=== PATIENT | male | born 1950 | race Caucasian/White ===

== ENCOUNTER 2017-07-31 19:01 | Observation (INO) | payer MEDICARE, BC ==
[~2017-07-31] VITALS: Ht 177.8 cm; Wt 123.4 kg
[2017-07-31] MEDS ORDERED: ACETAMINOPHEN 325 MG TAB PO ONE (19:45)
[2017-07-31 20:07] LABS: BASOPHILS % 0.2 % (0.0-1.0); EOSINOPHILS % 0.2 % (0.0-6.0); HEMATOCRIT 48.9 % (38.2-49.6); HEMOGLOBIN 15.8 g/dL (14.0-18.0); LYMPHOCYTES # (AUTO) 0.5 (1.0-3.2); LYMPHOCYTES % 3.7 % (18.0-39.1); MEAN CORPUSCULAR HGB CONC 32.3 g/dL (31-35); MONOCYTES % 7.8 % (4.4-11.3); NEUTROPHILS # (AUTO) 11.1 (2.1-6.9); NEUTROPHILS % 87.4 % (38.7-80.0); PLATELET COUNT 105 x10e3/uL (140-360); RED BLOOD COUNT 4.94 x10e6/uL (4.3-5.7); RED CELL DISTRIBUTION WIDTH 13.2 % (11.7-14.4)
[2017-07-31 20:16] LABS: INR 0.97; PROTHROMBIN TIME 13.4 seconds (11.9-14.5)
[2017-07-31 20:17] LABS: PARTIAL THROMBOPLASTIN TIME 36.3 seconds (23.8-35.5)
--- NOTE | 2017-07-31 20:18 | Diagnostic Imaging Report ---
EXAM: CHEST 2 VIEWS, PA and lateral DATE: 07/31/2017 7:31 PM Time stamp on exam: 1940 hours INDICATION: Shortness of breath, history of COPD COMPARISON: AP view of the chest June 19, 2011 FINDINGS: LINES/TUBES: None LUNGS: No consolidations or edema. Stable vascular congestion and bronchial thickening. PLEURA: No effusions or pneumothorax. HEART AND MEDIASTINUM: Normal size and contour. BONES AND SOFT TISSUES: No acute findings. IMPRESSION: No consolidative pneumonia Signed by: Dr. Carolyn Rodriguez M.D. on 07/31/2017 8:14 PM
[2017-07-31 20:25] LABS: ALBUMIN 4.1 g/dL (3.5-5.0); ALBUMIN/GLOBULIN RATIO 1.1 (0.8-2.0); ANION GAP 12.8 mmol/L (8-16); CALCIUM 9.5 mg/dL (8.4-10.2); CREATININE, SERUM 1.22 mg/dL (0.72-1.25); POTASSIUM 4.8 mmol/L (3.5-5.1)
[2017-07-31] MEDS ORDERED: CEFTRIAXONE SOD 1 GM VIAL IV STA (20:26)
[2017-07-31] MEDS ORDERED: METHYLPREDNISOLONE SOD SUCC 125 MG/2ML VIAL IV STA (20:43)
[2017-07-31] MEDS ORDERED: SODIUM CHLORIDE 0.9% 500ML 500 ML IV ONE (20:45)
[2017-07-31] MEDS ORDERED: LEVALBUTEROL HCL SOLN NEBU 0.63 MG/3 ML NEB INH ONE (20:45)
[2017-07-31] MEDS ORDERED: IPRATROPIUM BROMIDE 0.02% 2.5 ML NEB NEB ONE (20:45)
[2017-07-31 20:52] LABS: CLARITY,URINE CLOUDY (CLEAR); COLOR,URINE AMBER (YELLOW); KETONES,URINE NEGATIVE (NEGATIVE); LEUKOCYTE ESTERASE ,URINE 2+ (NEGATIVE); URINE UROBILINOGEN 8 mg/dL (0.2 - 1)
[2017-07-31 20:57] LABS: BILIRUBIN,URINE 3+ (NEGATIVE); NITRITE,URINE POSITIVE (NEGATIVE); PROTEIN,URINE DIPSTICK 2+ (NEGATIVE)
[2017-07-31 21:23] LABS: WBC,URINE (MAN) >50 /HPF (0-5)
[2017-07-31 21:24] LABS: BACTERIA,URINE MODERATE /HPF; EPITHELIAL CELLS,URINE MODERATE /LPF
[2017-07-31] MEDS ORDERED: VANCOMYCIN 1GM/NS 250 ML 250 ML IV ONE (21:30)
[2017-07-31] MEDS ORDERED: SODIUM CHLORIDE 0.9% 1000ML 1,000 ML IV ONE (21:38)
[2017-07-31] MEDS ORDERED: ACETAMINOPHEN 325 MG TAB PO PRN (21:45)
[2017-07-31] MEDS ORDERED: ONDANSETRON HCL INJ 2 MG/ML VIAL IV PRN (21:45)
[2017-07-31 22:30] VITALS: BP 155/70
[2017-07-31 23:33] VITALS: BP 155/70
[2017-08-01 04:00] VITALS: BP 121/58
[2017-08-01] MEDS ORDERED: CEFTRIAXONE SOD 1 GM VIAL IV SCH (08:00)
[2017-08-01] MEDS ORDERED: ASPIRIN81 MG (08:28)
[2017-08-01] MEDS ORDERED: FLUOCINONIDE-E15 GM TOP (08:28)
[2017-08-01] MEDS ORDERED: SPIRIVA18 MCG INH (08:28)
[2017-08-01] MEDS ORDERED: SIMVASTATIN20 MG PO (08:28)
[2017-08-01] MEDS ORDERED: TRADJENTA5 MG (08:28)
[2017-08-01] MEDS ORDERED: DULERA 200 MCG/13 GM INH (08:28)
[2017-08-01] MEDS ORDERED: ZADITOR5 ML OP (08:28)
[2017-08-01] MEDS ORDERED: DIOVAN HCT 1601 EACH (08:28)
[2017-08-01] MEDS ORDERED: VITAMIN D5000 UNIT (08:28)
[2017-08-01] MEDS ORDERED: TRIAMCINOLONE A15 G1 TP (08:28)
[2017-08-01] MEDS ORDERED: ZYRTEC10 M3 (08:28)
[2017-08-01] MEDS ORDERED: METOPROLOL SUCC50 MG PO (08:28)
[2017-08-01] MEDS ORDERED: ENBREL25 MG/0.5 SC (08:28)
[2017-08-01] MEDS ORDERED: TAMSULOSIN HCL0.4 MG (08:28)
[2017-08-01 08:30] LABS: BASOPHILS % 0.3 % (0.0-1.0); HEMATOCRIT 47.6 % (38.2-49.6); HEMOGLOBIN 15.3 g/dL (14.0-18.0); LYMPHOCYTES # (AUTO) 0.4 (1.0-3.2); LYMPHOCYTES % 2.4 % (18.0-39.1); MEAN CORPUSCULAR HEMOGLOBIN 31.9 pg (28-32); MEAN CORPUSCULAR HGB CONC 32.1 g/dL (31-35); MEAN CORPUSCULAR VOLUME 99.2 fL (81-99); MONOCYTES # (AUTO) 0.3 (0.2-0.8); MONOCYTES % 1.7 % (4.4-11.3); NEUTROPHILS # (AUTO) 13.6 (2.1-6.9); NEUTROPHILS % 94.2 % (38.7-80.0); PLATELET COUNT 98 x10e3/uL (140-360); RED CELL DISTRIBUTION WIDTH 13.2 % (11.7-14.4)
[2017-08-01] MEDS ORDERED: DEXTROSE 50% SYRINGE 50 ML IV PRN (08:45)
[2017-08-01 08:58] LABS: ALANINE AMINOTRANSFERASE 12 IU/L (0-55); ALBUMIN 3.5 g/dL (3.5-5.0); ALBUMIN/GLOBULIN RATIO 0.9 (0.8-2.0); ALKALINE PHOSPHATASE 38 IU/L (40-150); ANION GAP 13.7 mmol/L (8-16); BLOOD UREA NITROGEN 22 mg/dL (7-26); BUN/CREATININE RATIO 20 (6-25); CALCIUM 8.8 mg/dL (8.4-10.2); CARBON DIOXIDE 29 mmol/L (22-29); CHLORIDE 93 mmol/L (98-107); CREATININE, SERUM 1.11 mg/dL (0.72-1.25); EST GLOMERULAR FILTRATION RATE > 60 ML/MIN (60-); GLUCOSE 213 mg/dL (74-118); POTASSIUM 4.7 mmol/L (3.5-5.1); SODIUM 131 mmol/L (136-145)
[2017-08-01] MEDS: TRADJENTA 5 MG PO SCH (09:00)
[2017-08-01] MEDS: [UNRECOGNIZED DRUG - OTHER] OP SCH (09:00)
[2017-08-01] MEDS ORDERED: ETANERCEPT SC SCH (09:15)
[2017-08-01] MEDS: INSULIN LISPRO 100 UNIT/1 ML 3ML VIAL SQ SCH ×4 (09:15→22:00)
[2017-08-01 09:25] LABS: CREATINE KINASE MB 2.8 ng/mL (0.00-5.00); TROPONIN I 0.014 ng/mL (0-0.300)
[2017-08-01] MEDS: ASPIRIN 81 MG CHEW TAB PO SCH (09:40)
[2017-08-01] MEDS: LORATADINE 10 MG TAB PO SCH (09:40)
[2017-08-01] MEDS: VALSARTAN 160 MG TAB PO SCH (09:40)
[2017-08-01] MEDS: HYDROCHLOROTHIAZIDE 25 MG TAB PO SCH (09:40)
[2017-08-01] MEDS: CHOLECALCIFEROL 1,000 UNIT TAB PO SCH (09:41)
[2017-08-01 11:22] LABS: BAND NEUTROPHILS % (MANUAL) 16 %; LYMPHOCYTES % (MANUAL) 3 % (19-48); MONOCYTES % (MANUAL) 2 % (3.4-9.0); NEUTROPHILS % (MANUAL) 79 % (40-74); PLATELET MORPHOLOGY COMMENT NORMAL; RBC MORPHOLOGY COMMENT NORMAL
[2017-08-01 11:23] LABS: PLATELET ESTIMATE SLIGHTLY DECREASED
[2017-08-01] MEDS: FLUOCINONIDE 0.05% 1 EA/15 GM TUBE TOP SCH (12:00)
[2017-08-01] MEDS ORDERED: ALBUTEROL/IPRATROPIUM 3 ML NEB NEB PRN (12:30)
[2017-08-01] MEDS: CEFEPIME HCL 1 GM VIAL IV SCH ×2 (14:28→21:05)
[2017-08-01] MEDS: TIOTROPIUM 18 MCG INH POWDER INH SCH (15:35)
[2017-08-01 16:55] LABS: CREATINE KINASE MB 3.1 ng/mL (0.00-5.00); TROPONIN I 0.018 ng/mL (0-0.300)
[2017-08-01 17:05] VITALS: BP 128/67
[2017-08-01 20:00] VITALS: BP 130/65
[2017-08-01] MEDS ORDERED: TAMSULOSIN HCL 0.4 MG CAP PO SCH (21:00)
[2017-08-01] MEDS ORDERED: METOPROLOL SUCCINATE 50 MG TAB XL PO SCH (21:00)
[2017-08-01] MEDS ORDERED: SIMVASTATIN 20 MG TAB PO SCH (21:00)
[2017-08-01] MEDS ORDERED: TRESIBA 200 UNIT/ML SC SCH (21:00)
[2017-08-02] VITALS: BP 134/79
[2017-08-02 04:00] VITALS: BP 138/77
[2017-08-02] MEDS: CEFEPIME HCL 1 GM VIAL IV SCH (06:18)
[2017-08-02 07:11] LABS: BASOPHILS % 0.2 % (0.0-1.0); EOSINOPHILS % 0.1 % (0.0-6.0); HEMATOCRIT 45.5 % (38.2-49.6); HEMOGLOBIN 14.4 g/dL (14.0-18.0); LYMPHOCYTES # (AUTO) 0.7 (1.0-3.2); MEAN CORPUSCULAR HEMOGLOBIN 31.6 pg (28-32); MEAN CORPUSCULAR HGB CONC 31.6 g/dL (31-35); MONOCYTES # (AUTO) 1.3 (0.2-0.8); MONOCYTES % 7.7 % (4.4-11.3); NEUTROPHILS # (AUTO) 14.5 (2.1-6.9); NEUTROPHILS % 86.9 % (38.7-80.0); PLATELET COUNT 110 x10e3/uL (140-360); RED BLOOD COUNT 4.55 x10e6/uL (4.3-5.7); RED CELL DISTRIBUTION WIDTH 13.3 % (11.7-14.4)
[2017-08-02] MEDS: TIOTROPIUM 18 MCG INH POWDER INH SCH (07:30)
[2017-08-02 07:42] LABS: ANION GAP 10.6 mmol/L (8-16); BLOOD UREA NITROGEN 31 mg/dL (7-26); BUN/CREATININE RATIO 27 (6-25); CALCIUM 8.8 mg/dL (8.4-10.2); CARBON DIOXIDE 34 mmol/L (22-29); CHLORIDE 90 mmol/L (98-107); CREATININE, SERUM 1.15 mg/dL (0.72-1.25); EST GLOMERULAR FILTRATION RATE > 60 ML/MIN (60-); GLUCOSE 156 mg/dL (74-118); POTASSIUM 4.6 mmol/L (3.5-5.1); SODIUM 130 mmol/L (136-145)
[2017-08-02 08:21] VITALS: BP 152/75
[2017-08-02] MEDS: ASPIRIN 81 MG CHEW TAB PO SCH (08:42)
[2017-08-02] MEDS: LORATADINE 10 MG TAB PO SCH (08:42)
[2017-08-02] MEDS: INSULIN LISPRO 100 UNIT/1 ML 3ML VIAL SQ SCH ×2 (08:42→11:30)
[2017-08-02] MEDS: CHOLECALCIFEROL 1,000 UNIT TAB PO SCH (08:42)
[2017-08-02] MEDS: TRADJENTA 5 MG PO SCH (08:43)
[2017-08-02] MEDS: HYDROCHLOROTHIAZIDE 25 MG TAB PO SCH (08:43)
[2017-08-02] MEDS: [UNRECOGNIZED DRUG - OTHER] OP SCH (08:43)
[2017-08-02] MEDS: VALSARTAN 160 MG TAB PO SCH (08:43)
[2017-08-02] MEDS: FLUOCINONIDE 0.05% 1 EA/15 GM TUBE TOP SCH (08:44)
[2017-08-02] MEDS ORDERED: TRIAMCINOLONE ACET 0.1% CREAM 15 GM TUBE TOP SCH (09:00)
[2017-08-02] MEDS ORDERED: CEFTRIAXONE SOD 1 GM VIAL IV SCH (13:30)
[2017-08-02] MEDS ORDERED: CIPRO500 MG PO (13:53)
--- NOTE | 2017-08-03 08:26 | Discharge Summary ---
PRIMARY CARE DOCTOR: Dr. Cornelius Gu FINAL DIAGNOSIS: Sepsis present on admission due to Escherichia coli urinary tract infection. SECONDARY DIAGNOSIS 1. Chronic hyponatremia, stable and asymptomatic. 2. Diabetes. 3. Chronic respiratory failure due to chronic obstructive pulmonary disease, on home oxygen. 4. Chronic mild thrombocytopenia, stable. 5. Psoriatic arthritis, on Enbrel weekly injection. 6. Stage 2 chronic kidney disease due to diabetes. 7. Hypertension. CONSULTANTS: None. PROCEDURES/STUDIES PERFORMED: None. HISTORY OF PRESENT ILLNESS: Per [facility]. HOSPITAL COURSE: The patient clinically responded to IV antibiotics well. His strength came back nicely as well. He is pretty much back to baseline. This was confirmed by his at the bedside. I will send him home on ciprofloxacin for another week. I informed them to talk to his primary care doctor about potential urological workup. The patient's white blood cell count by the time of discharge was still elevated at 16. On admission, it was 13. The patient has been afebrile for 24 hours now. This is most likely due to inflammatory response from his psoriatic arthritis. Clinically, he is doing well. CONDITION ON DISCHARGE: Stable. DISCHARGE MEDICATIONS: Please see medication reconciliation form. It took 32 minutes total to discharge this patient. ALBERTO NJ M.D. Job#: [id number] RI cc:CORNELIUS UG MD
== END 2017-08-02 14:30 | disposition home or self-care (01) ==
LOC: ER 19:01 → ERHOLD 22:04 → IMCU 22:14 → MED/SURG2 08-01 17:29
PROVIDERS: ADMIT Internal Medicine; ATTEND Internal Medicine
DX: A41.9 Sepsis, unspecified organism (principal); N39.0 Urinary tract infection, site not specified; B96.20 Unspecified Escherichia coli [E. coli] as the cause of diseases classified elsewhere; R31.9 Hematuria, unspecified; E87.1 Hypo-osmolality and hyponatremia; J44.9 Chronic obstructive pulmonary disease, unspecified; J96.10 Chronic respiratory failure, unspecified whether with hypoxia or hypercapnia; D69.6 Thrombocytopenia, unspecified; Z99.81 Dependence on supplemental oxygen; L40.50 Arthropathic psoriasis, unspecified; E11.22 Type 2 diabetes mellitus with diabetic chronic kidney disease; I12.9 Hypertensive chronic kidney disease with stage 1 through stage 4 chronic kidney disease, or unspecified chronic kidney disease; N18.2 Chronic kidney disease, stage 2 (mild)
CPT/HCPCS: 36415 ×3; 71020; 80048; 80053 ×2; 81001; 82550; 82553; 82948 ×3; 83605; 84443; 84484; 85025 ×3; 85610; 85730; 87040; 87086; 87186; 87400; 93005; 94640; 94660 ×2; 99284; G0378 ×3; J0692 ×2; J0696 ×3; J2930; J3370; J7030; J7040

== ENCOUNTER → 2017-10-04 | Outpatient (CLI) | payer MEDICARE, BC ==
[~2017-10-04] MED LIST: ASPIRIN81 MG; CIPRO500 MG PO; DIOVAN HCT 1601 EACH; DULERA 200 MCG/13 GM INH; ENBREL25 MG/0.5 SC; FLUOCINONIDE-E15 GM TOP; METOPROLOL SUCC50 MG PO; SIMVASTATIN20 MG PO; SPIRIVA18 MCG INH; TAMSULOSIN HCL0.4 MG; TRADJENTA5 MG; TRIAMCINOLONE A15 G1 TP; VITAMIN D5000 UNIT; ZADITOR5 ML OP; ZYRTEC10 M3
--- NOTE | 2017-10-04 11:59 | Diagnostic Imaging Report ---
PROCEDURE: Frontal and lateral views of the chest. COMPARISON: Chest radiograph 07/31/2017 INDICATIONS: FOLLOW UP ON SPOT SEEN IN LUNG FINDINGS: Lines/tubes: None. Lungs: The lungs are well inflated. There is no evidence of pneumonia or pulmonary edema. Pleura: There is no pleural effusion or pneumothorax. Heart and mediastinum: The heart and the mediastinum are normal. Bones: No acute bony abnormality. IMPRESSION: No acute cardiopulmonary disease. Dictated by: Joshua Suarez M.D. on 10/04/2017 at 11:59 Electronically approved by: Joshua Suarez M.D. on 10/04/2017 at 11:59
== END ==
LOC: RAD 11:26
PROVIDERS: ATTEND Internal Medicine
DX: J44.9 Chronic obstructive pulmonary disease, unspecified (principal)
CPT/HCPCS: 71046

== ENCOUNTER → 2021-07-14 | Outpatient (CLI) | payer MEDICARE, BC | LOC: RAD 13:51 | PROVIDERS: ATTEND Internal Medicine Pulmonary Disease | DX: R06.02 Shortness of breath (principal) | CPT/HCPCS: 71046 ==

== ENCOUNTER 2021-08-17 10:50 | Emergency (ER) | payer MEDICARE, BC ==
[~2021-08-17] VITALS: Ht 177.8 cm; Wt 123.4 kg
[2021-08-17 11:15] LABS: BASOPHILS % 0.4 % (0.0-1.0); HEMATOCRIT 43.3 % (38.2-49.6); HEMOGLOBIN 13.2 g/dL (14.0-18.0); LYMPHOCYTES # (AUTO) 0.4 (1.0-3.2); LYMPHOCYTES % 15.6 % (18.0-39.1); MEAN CORPUSCULAR HEMOGLOBIN 29.3 pg (28-32); MEAN CORPUSCULAR HGB CONC 30.5 g/dL (31-35); MEAN CORPUSCULAR VOLUME 96.2 fL (81-99); MONOCYTES # (AUTO) 0.2 (0.2-0.8); MONOCYTES % 10.7 % (4.4-11.3); NEUTROPHILS # (AUTO) 1.6 (2.1-6.9); NEUTROPHILS % 72.4 % (38.7-80.0); PLATELET COUNT 78 x10e3/uL (140-360); RED CELL DISTRIBUTION WIDTH 15.2 % (11.7-14.4)
[2021-08-17 11:28] LABS: ALBUMIN 3.4 g/dL (3.5-5.0); ALBUMIN/GLOBULIN RATIO 0.9 (0.8-2.0); ANION GAP 13.9 mmol/L (8-16); CREATININE, SERUM 1.2 mg/dL (0.72-1.25); POTASSIUM 4.9 mmol/L (3.5-5.1)
[2021-08-17 11:28] LABS: COLOR,URINE YELLOW (YELLOW)
[2021-08-17 11:29] LABS: CLARITY,URINE CLEAR (CLEAR); KETONES,URINE NEGATIVE (NEGATIVE); LEUKOCYTE ESTERASE ,URINE NEGATIVE (NEGATIVE); NITRITE,URINE NEGATIVE (NEGATIVE); PROTEIN,URINE DIPSTICK >=300 (NEGATIVE); URINE UROBILINOGEN 0.2 mg/dL (0.2 - 1)
[2021-08-17] MEDS ORDERED: ACETAMINOPHEN 325 MG TAB ONE (11:38)
[2021-08-17 11:39] LABS: BACTERIA,URINE RARE /HPF; EPITHELIAL CELLS,URINE FEW /LPF; RBC,URINE 0-5 /HPF (0-5); WBC,URINE (MAN) 0-5 /HPF (0-5)
[2021-08-17] MEDS ORDERED: ACETAMINOPHEN 325 MG TAB PO NR (11:45)
[2021-08-17 12:12] VITALS: BP 108/57
== END 2021-08-17 13:00 | disposition home or self-care (01) ==
LOC: ER 10:57
DX: U07.1 COVID-19 (principal); R50.9 Fever, unspecified; R53.1 Weakness; I10 Essential (primary) hypertension; E11.9 Type 2 diabetes mellitus without complications; E78.5 Hyperlipidemia, unspecified; J44.9 Chronic obstructive pulmonary disease, unspecified; M54.9 Dorsalgia, unspecified; G89.29 Other chronic pain
CPT/HCPCS: 36415; 71045; 80053; 81001; 83880; 84484; 85025; 87086; 93005; 99284

== ENCOUNTER → 2023-08-30 | Outpatient (REF) | payer MEDICARE, BC ==
[~2023-08-30] MED LIST changes: +ACIDOPHILUS1 EAC1 PO; +AMIODARONE HCL200 MG PO; +AMLODIPINE-OLM1 EACH PO; +CEFTIN PO; +EFFIENT10 MG PO; +FINASTERIDE5 MG PO; +FLOMAX0.4 MG PO; +ROSUVASTATIN CA20 MG PO; +TAMSULOSIN PO; +TRESIBA FL200 UNIT/1 SQ; -ZYRTEC10 M3; +ZYRTEC10 M3 PO
== END ==
LOC: CT 11:27
PROVIDERS: ATTEND Nurse Practitioner Family
DX: R09.02 Hypoxemia (principal); J44.9 Chronic obstructive pulmonary disease, unspecified; L40.50 Arthropathic psoriasis, unspecified; Z87.891 Personal history of nicotine dependence
CPT/HCPCS: 71250

== ENCOUNTER → 2024-03-23 | Outpatient (REF) | payer MEDICARE, BC | LOC: RAD 14:30 | PROVIDERS: ATTEND Nurse Practitioner Family | DX: R09.02 Hypoxemia (principal); J44.9 Chronic obstructive pulmonary disease, unspecified; K21.9 Gastro-esophageal reflux disease without esophagitis; G47.33 Obstructive sleep apnea (adult) (pediatric); L40.50 Arthropathic psoriasis, unspecified; J30.2 Other seasonal allergic rhinitis; E66.9 Obesity, unspecified; Z87.891 Personal history of nicotine dependence | CPT/HCPCS: 71046 ==

== ENCOUNTER 2024-05-30 01:07 | Inpatient (IN) | payer MEDICARE, BC ==
[2024-05-30] VITALS (10 sets, daily range): BP systolic 116–129; BP diastolic 58–70; PULSE 81–86; RESP 18–25; TEMP 97.9–99.2; O2SAT 94–98
[~2024-05-30] VITALS: Ht 180.3 cm; Wt 120.5 kg
[2024-05-30] MEDS: SODIUM CHLORIDE 0.9% 1000ML 1,000 ML IV STA (01:28)
[2024-05-30] MEDS: ACETAMINOPHEN 325 MG TAB PO STA (01:29)
[2024-05-30 01:40] LABS: BASOPHILS % 0.1 % (0.0-1.0); EOSINOPHILS % 0.1 % (0.0-6.0); HEMATOCRIT 42.4 % (38.2-49.6); HEMOGLOBIN 13.4 g/dL (14.0-18.0); LYMPHOCYTES # (AUTO) 0.4 (1.0-3.2); LYMPHOCYTES % 5.2 % (18.0-39.1); MEAN CORPUSCULAR HEMOGLOBIN 32.1 pg (28-32); MEAN CORPUSCULAR HGB CONC 31.6 g/dL (31-35); MEAN CORPUSCULAR VOLUME 101.7 fL (81-99); MONOCYTES # (AUTO) 0.7 (0.2-0.8); MONOCYTES % 8.3 % (4.4-11.3); NEUTROPHILS # (AUTO) 7.1 (2.1-6.9); NEUTROPHILS % 86.1 % (38.7-80.0); RED BLOOD COUNT 4.17 x10e6/uL (4.3-5.7)
[2024-05-30 02:02] LABS: CLARITY,URINE CLOUDY (CLEAR); COLOR,URINE YELLOW (YELLOW); GLUCOSE, URINE NEGATIVE (NEGATIVE); KETONES,URINE TRACE (NEGATIVE); LEUKOCYTE ESTERASE ,URINE SMALL (NEGATIVE); NITRITE,URINE NEGATIVE (NEGATIVE); PH,URINE 5.5 (5 - 7); PROTEIN,URINE DIPSTICK 2+ (NEGATIVE)
[2024-05-30 02:03] LABS: BILIRUBIN,URINE NEGATIVE (NEGATIVE); URINE UROBILINOGEN 0.2 mg/dL (0.2 - 1)
[2024-05-30 02:03] LABS: ALBUMIN 3.8 g/dL (3.5-5.0); ALBUMIN/GLOBULIN RATIO 1.1 (0.8-2.0); ANION GAP 16.7 mmol/L (8-16); BILIRUBIN,TOTAL 0.8 mg/dL (0.2-1.2); CALCIUM 9.2 mg/dL (8.4-10.2); CREATININE, SERUM 1.72 mg/dL (0.72-1.25); POTASSIUM 4.7 mmol/L (3.5-5.1); TOTAL PROTEIN 7.3 g/dL (6.5-8.1)
[2024-05-30 02:10] LABS: BACTERIA,URINE MANY /HPF; EPITHELIAL CELLS,URINE FEW /LPF; RBC,URINE 0-5 /HPF (0-5); WBC,URINE (MAN) 21-50 /HPF (0-5)
[2024-05-30 02:25] LABS: PLATELET COUNT 88 x10e3/uL (140-360)
[2024-05-30 02:39] LABS: TROPONIN I 0.012 ng/mL (0-0.300)
[2024-05-30 02:44] LABS: B-TYPE NATRIURETIC PEPTIDE2 108.6 pg/mL (0-100)
[2024-05-30] MEDS ORDERED: ONDANSETRON HCL INJ 2MG/ML 2ML 2 MG/ML VIAL IV PRN (03:00)
[2024-05-30] MEDS ORDERED: Morphine 2mg Syringe 2 MG/ML SYR IV PRN (03:00)
[2024-05-30] MEDS: SODIUM CHLORIDE 0.9% 1000ML 1,000 ML IV SCH (03:26)
[2024-05-30] MEDS ORDERED: DEXTROSE 50% SYRINGE 50 ML IV PRN (08:15)
[2024-05-30] MEDS ORDERED: ACETAMINOPHEN 325 MG TAB PO PRN (08:15)
[2024-05-30] MEDS: FINASTERIDE 5 MG TAB PO SCH (09:00)
[2024-05-30] MEDS: LACTOBACILLUS ACIDOPHILUS CAPSULE PO SCH (09:00)
[2024-05-30] MEDS ORDERED: AMIODARONE HCL 200 MG TAB PO SCH (09:00)
[2024-05-30] MEDS ORDERED: PRASUGREL 10 MG TAB PO SCH (09:00)
[2024-05-30] MEDS: LORATADINE 10 MG TAB PO SCH (09:00)
[2024-05-30] MEDS: INSULIN LISPRO 100 UNIT/1 ML 3ML VIAL SQ SCH (11:30)
[2024-05-30 14:11] LABS: TROPONIN I 0.012 ng/mL (0-0.300)
[2024-05-30] MEDS: TAMSULOSIN HCL 0.4 MG CAP PO SCH (18:02)
[2024-05-30] MEDS: SODIUM CHLORIDE 0.9% 250ML 250 ML ONE (18:09)
[2024-05-30] MEDS: CRESTOR 10MG PO SCH (22:03)
[2024-05-30] MEDS: METOPROLOL SUCCINATE 50 MG TAB XL PO SCH (22:05)
[2024-05-31] VITALS (10 sets, daily range): BP systolic 99–115; BP diastolic 43–57; PULSE 71–95; RESP 18–21; TEMP 97.2–98.6; O2SAT 93–100
[2024-05-31 05:59] LABS: BASOPHILS % 0.2 % (0.0-1.0); EOSINOPHILS # (AUTO) 0.1 (0.0-0.4); EOSINOPHILS % 0.6 % (0.0-6.0); HEMATOCRIT 40.2 % (38.2-49.6); HEMOGLOBIN 12.6 g/dL (14.0-18.0); LYMPHOCYTES # (AUTO) 0.5 (1.0-3.2); LYMPHOCYTES % 6.3 % (18.0-39.1); MEAN CORPUSCULAR HEMOGLOBIN 32.4 pg (28-32); MEAN CORPUSCULAR HGB CONC 31.3 g/dL (31-35); MEAN CORPUSCULAR VOLUME 103.3 fL (81-99); MONOCYTES # (AUTO) 0.9 (0.2-0.8); MONOCYTES % 10.9 % (4.4-11.3); NEUTROPHILS # (AUTO) 6.9 (2.1-6.9); NEUTROPHILS % 81.4 % (38.7-80.0); PLATELET COUNT 114 x10e3/uL (140-360); RED BLOOD COUNT 3.89 x10e6/uL (4.3-5.7); RED CELL DISTRIBUTION WIDTH 14.2 % (11.7-14.4); WHITE BLOOD COUNT 8.53 x10e3/uL (4.8-10.8)
[2024-05-31 06:37] LABS: ALBUMIN 3.1 g/dL (3.5-5.0); ALBUMIN/GLOBULIN RATIO 0.9 (0.8-2.0); ANION GAP 14.4 mmol/L (8-16); CALCIUM 8.3 mg/dL (8.4-10.2); CREATININE, SERUM 1.19 mg/dL (0.72-1.25); POTASSIUM 4.4 mmol/L (3.5-5.1); TOTAL PROTEIN 6.4 g/dL (6.5-8.1)
[2024-05-31 07:00] LABS: TROPONIN I 0.016 ng/mL (0-0.300)
[2024-05-31] MEDS: DRONEDARONE 400 MG TAB PO SCH (09:03)
[2024-05-31] MEDS: CLOPIDOGREL BISULFATE 75 MG TAB PO SCH (09:03)
[2024-05-31 16:50] LABS: TROPONIN I 0.013 ng/mL (0-0.300)
[2024-06-01] VITALS (8 sets, daily range): BP systolic 108–167; BP diastolic 56–81; PULSE 78–95; RESP 18–20; TEMP 97.4–98.9; O2SAT 95–98
== END 2024-06-01 13:40 | disposition home or self-care (01) | DRG 690 ==
LOC: ER 01:13 → ERHOLD 02:48 → MED/SURG2 13:00
PROVIDERS: ADMIT Internal Medicine; ATTEND Internal Medicine
DX: N39.0 Urinary tract infection, site not specified (principal); N17.9 Acute kidney failure, unspecified; I47.10 Supraventricular tachycardia, unspecified; D69.6 Thrombocytopenia, unspecified; Z99.81 Dependence on supplemental oxygen; E11.9 Type 2 diabetes mellitus without complications; I10 Essential (primary) hypertension; I48.91 Unspecified atrial fibrillation; I25.10 Atherosclerotic heart disease of native coronary artery without angina pectoris; J44.9 Chronic obstructive pulmonary disease, unspecified; G47.30 Sleep apnea, unspecified; N40.0 Benign prostatic hyperplasia without lower urinary tract symptoms; E86.0 Dehydration; Z11.52 Encounter for screening for COVID-19; Z79.4 Long term (current) use of insulin; Z95.5 Presence of coronary angioplasty implant and graft; Z87.891 Personal history of nicotine dependence
CPT/HCPCS: 36415; 71045; 80053; 81001; 82550; 82948; 83605; 83690; 83880; 84484; 85025; 87040; 87086; 93005; 94760; 94799; 96372; 99284; J2543; J7030; J7050; U0002

== ENCOUNTER → 2024-08-25 | Outpatient (REF) | payer MEDICARE, BC | LOC: CT 11:44 | PROVIDERS: ATTEND Nurse Practitioner Family | DX: R06.02 Shortness of breath (principal); J44.9 Chronic obstructive pulmonary disease, unspecified; Z87.891 Personal history of nicotine dependence | CPT/HCPCS: 71250 ==

== ENCOUNTER → 2025-03-23 | Outpatient (REF) | payer MEDICARE, BC | LOC: CT 11:37 | PROVIDERS: ATTEND Nurse Practitioner Family | DX: J98.4 Other disorders of lung (principal) | CPT/HCPCS: 71250 ==